=== PATIENT | male | born 1955 | race Caucasian/White ===

== ENCOUNTER 2021-06-22 10:24 | Day surgery (SDC) | payer BC ==
[2021-06-22] VITALS (10 sets, daily range): BP systolic 131–157; BP diastolic 80–92
[~2021-06-22] VITALS: Ht 175.3 cm; Wt 108.5 kg
[~2021-06-22 10:24] MED LIST: FLO0.4C PO; cefazolin/dext.iso 2gm/50ml IV ONE; famotidine 20mg tablet PO ONE; ringers solution, lacted 1,000 ML IV SCH
[2021-06-22] MEDS ORDERED: ringers solution, lacted 1,000 ML IV SCH (12:50)
[2021-06-22] MEDS ORDERED: proCHLORperazine 10 MG/2 ml inj IV PRN (12:50)
[2021-06-22] MEDS ORDERED: morphine 4 MG/ML inj SYRINge IV PRN (12:50)
[2021-06-22] MEDS ORDERED: meperidine/PF 25mg/ml syringe IV PRN ×3 (12:50)
[2021-06-22] MEDS ORDERED: morphine 2 MG/ML inj. syringe IV PRN (12:50)
[2021-06-22] MEDS ORDERED: ondansetron/PF 4mg/2ml inj IV PRN (12:50)
[2021-06-22] MEDS ORDERED: LIDOcaine 1% 30ml preserv. free vial ONE (13:53)
[2021-06-22] MEDS ORDERED: BUPIVAcaine/PF 2.5 mg/ml (0.25%) 30ml vial ONE (13:53)
[2021-06-22] MEDS ORDERED: oxyCODONE/APAP 5-325mg tablet PO PRN ×2 (14:05→16:00)
[2021-06-22] MEDS ORDERED: fentaNYL/PF 50MCG/1 ML 2ML syringe ONE (14:14)
[2021-06-22] MEDS ORDERED: midazolam 1 mg/ML 2ml injection ONE (14:14)
[2021-06-22] MEDS ORDERED: propofol inj 20 ML IV ONE (14:16)
[2021-06-22] MEDS ORDERED: rocuronium 10mg/ml inj IV ONE (14:16)
[2021-06-22] MEDS ORDERED: BUPIVACAINE liposomal/PF 13.3 MG/ML vial IM ONE (14:30)
[2021-06-22] MEDS ORDERED: BUPIVAcaine/PF 2.5mg/ml (0.25%) 10ml vial ONE (14:30)
[2021-06-22] MEDS ORDERED: ondansetron/PF 4mg/2ml inj ONE (15:45)
[2021-06-22] MEDS ORDERED: dexamethasone sod phosphate 4mg/ml inj. ONE (15:45)
[2021-06-22] MEDS ORDERED: neostigmine methylsulfate 1 MG/ML 10ml vial ONE (15:48)
[2021-06-22] MEDS ORDERED: glycopyrrolate 0.2mg/ml inj ONE (15:48)
--- NOTE | 2021-06-22 16:04 | NUR ---
Received from OR via [facility], accompanied by Anesthesiologist PATRIA and report given by Anesthesiolgist. PATIENT WITH ABDOMINAL BINDER IN PLACE. VSS. 10L MASK ON WITH 100%SATS AT THIS TIME. Addendum: 06/22/21 at 1614 by Pratik Diaz RN RN Amended: Links added.
--- NOTE | 2021-06-22 18:14 | NUR ---
ALL DISCHARGE CRITERIA HAS BEEN MET. VSS, PAIN AT A TOLERABLE LEVEL, VOIDING AND ABLE TO SAFELY AMBULATE AND TRANSFER SELF. IV TAKEN OUT WITHOUT ANY COMPLICATIONS. ALL DISCHARGE INSTRUCTIONS COVERED WITH PATIENT AND ALL QUESTIONS ANSWERED. PATIENT TAKEN OUT VIA WHEELCHAIR TO PERSONAL VEHICLE WHERE FAMILY/FRIEND DROVE PATIENT HOME BLADDER SCANNED PATIENT FOR 250 ML OF URINE. PATIENT USUALLY TAKES FLOMAX. PATIENT STATES HE NEVER EMPTIES FULLY. BUT WAS UNABLE TO VOID. MD SUAZO CALLED. RECOMMENDED HE EITHER STAY AND VOID OR GO HOME WITH A CATHETER. PATIENT STATES HE WILL GOTO [facility] IF HE CANNOT VOID. PATIENT UNDERSTANDS ORDERS HOWEVER DECIDED TO GO HOME. AND PATIENT GIVEN ALL DC INSTRUCTIONS. AND ALL QUESTIONS ANSWERED. DEMONSTRATED PROPER WAY TO TRANSFER AND PATIENT WAS MIN/ CGA FOR SIT TO STAND TO SIT. ENFORCED NO BEARING DOWN AND NO HOLDING HIS BREATH. PATIENT AGREES TO COMPLY. DRESSING TO HEAD REPLACED AND ABDOMINAL BINDER CDI. VSS. ABLE TO AMBULATE 40 FEET WITHOUT INCIDENT. Addendum: 06/22/21 at 1828 by Pratik Diaz RN, RN Amended: Links added.
== END 2021-06-22 18:14 | disposition home or self-care (01) ==
LOC: PAS 10:24
PROVIDERS: ATTEND Surgery
DX: K43.6 Other and unspecified ventral hernia with obstruction, without gangrene (principal); M62.00 Separation of muscle (nontraumatic), unspecified site; N40.0 Benign prostatic hyperplasia without lower urinary tract symptoms; E66.9 Obesity, unspecified; Z68.35 Body mass index [BMI] 35.0-35.9, adult; Z79.899 Other long term (current) drug therapy; Z98.890 Other specified postprocedural states; Z87.891 Personal history of nicotine dependence; Z85.828 Personal history of other malignant neoplasm of skin; Z20.822 Contact with and (suspected) exposure to COVID-19
CPT/HCPCS: 49653; 64488; 82948; 87635; 93005; C1781; C9290; C9803; J0690; J1100; J2175; J2250; J2270; J2405; J2704; J2710; J3010; J3490; J7030; J7120; S2900; Z7506; Z7508; Z7512; A4215; A4618